=== PATIENT | male | born 1940 | race Caucasian/White ===

== ENCOUNTER 2016-10-23 03:36 | Inpatient (IN) | payer OTHER ==
[~2016-10-23] VITALS: Ht 167.6 cm; Wt 72.6 kg
[2016-10-23] MEDS ORDERED: LIPITOR10 M1 PO (07:19)
[2016-10-23] MEDS ORDERED: DIOVAN HCT 3201 EACH PO (07:20)
[2016-10-23] MEDS ORDERED: ASPIRIN81 M4 PO (07:21)
--- NOTE | 2016-10-23 12:33 | History & Physical ---
General Information and HPI MD Statement: I have seen and personally examined ENRIQUE JONES and documented this H&P. The patient is a 76 year old M who presented with a patient stated chief complaint of [Afib]. Source of Information: patient History of Present Illness: 76-year-old gentleman with out significant past medical history was admitted for new-onset A. fib. Patient was a scheduled for an elective hip replacement therapy today. He had a preop evaluation by his PCP about 2 weeks ago during which his EKG was within normal sinus rate and rhythm. Patient recalls intermittent episodes of feeling anxious accompanied by feelings that his heart was racing. These episodes tend to be very separate from each other and has not caused any limitation for his physical activity. Patient does not remember any trigger that in associated with this episodes of tachycardia. The latest episodes was about 3 nights ago. According to patient this episodes is started gradually and resolved after about 2 hours spontaneously. Patient denies any chest pain, shortness of breath, cold or heat intolerance, unintentional weight loss or weight gain, lightheadedness dizziness and loss of consciousness. Allergies/Medications Allergies: Coded Allergies: methyldopa (From ALDOMET) (Severe, ALTERED LIVER ENZYMES 10/22/16) Home Med list Aspirin (Aspirin*) 81 MG TAB.CHEW 81 MG PO DAILY HEART HEALTH (Reported) Atorvastatin Calcium (Lipitor) 10 MG TABLET 10 MG PO DAILY HIGH CHOLESTROL ( Reported) Valsartan/Hydrochlorothiazide (Diovan Hct 320-25 MG Tablet) 320 MG-25 MG TABLET HIGH BLOOD PRESSURE (Reported) Past History Travel History Traveled to [place] past 21 day No Medical History Neurological: NONE Cardiovascular: hypertension, hyperlipidemia Respiratory: NONE Isolation History: Standard Surgical History Surgical History: non-contributory Past Family/Social History Family History Relations & Conditions if any SISTER (heart dysrhythmia). Functional Ability ADLs Independent: dressing, eating, toileting, bathing. Ambulation: independent IADLs Independent: shopping, housework, finances, food prep, telephone, transportation , medication admin. Review of Systems Review of Systems Constitutional: Denies: no symptoms. Cardiovascular: Reports: palpitations. Denies: chest pain, edema, orthopena, peripheral edema, syncope. Respiratory: Denies: cough, hemoptysis, orthopnea, short of breath, sputum production, stridor, wheezing. GI: Denies: abdominal pain, bloating, constipation, diarrhea, distention, bowel incontinence, melena, nausea, bloody stool, changes in stool, vomiting, steatorrhea. Genitourinary: Denies: discharge, dysuria, frequency, hematuria, hesitation, nocturia, pain, urgency. Musculoskeletal: Denies: back pain, gout, joint pain, joint swelling, muscle pain, muscle stiffness, neck pain. Skin: Denies: cysts, change in skin color, change in hair/nails, dryness, erythema, jaundice, lesions, lymphangitis, lumps, moles, rash. Neurological/Psychological: Denies: anxiety, ataxia, cognitive dysfunction, confusion, depressed, dementia, emotional problems, headache, numbness, paresthesia, pre-existing deficit, petit mal seizures, tingling, tremors, tonic-clonic seizures, unable to move lower ext , unable to move upper ext, weakness, other. All Other Systems: Reviewed and Negative Exam & Diagnostic Data Last 24 Hrs of Vital Signs/I&O Intake & Output 10/23 1600 10/23 0800 10/23 0000 Intake Total Output Total Balance Patient 160 lb Weight Physical Exam General Appearance Alert, Oriented X3, Cooperative, No Acute Distress Skin No Rashes, No Breakdown, No Significant Lesion HEENT Atraumatic, PERRLA, EOMI, Mucous Membr. moist/pink Neck Supple, No JVD, No thryomegaly Lymphatic Axillary nl, Cervical nl Cardiovascular No Murmurs, irregularly irregular; tachycardic Lungs Clear to Auscultation Abdomen Soft Neurological Normal Speech Extremities No Clubbing, No Cyanosis, No Edema Vascular Normal Pulses, Pulses Symmetrical Breasts Breast appear nl, No breast discharge, No breast masses Last 24 Hrs of Labs/Jayesh: Labs were ordered Diagnostic Data EKG Results Atrial fibrillation with rapid ventricular rate Assessment/Plan Assessment: 76-year-old gentleman insignificant past couple history was admitted for paroxysmal atrial fibrillation with unknown duration. Plan: #1 new onset A. fib with unknown duration. CHADS-VASC2 score 2>>4% per year risk of Thromboembolic events * With the patient to telemetry unit * Check troponins 2 sets at 1 and 4 PM * CBC and BEP and magnesium * Check TSH and free T4 * chest x-ray * Echocardiography * Started patient on IV heparin for generalized anticoagulation; with plan to convert to NOVEL A/C medication as soon as tomorrow * The patient on metoprolol 12.5 mg by mouth twice a day for heartrate control targets heart rate below 110; remained tachycardic start Cardizem drip #2 HTN * continue Losartan 100 mg po daily * continue HCTZ 25 mg po daily As Ranked By This Provider Problem List: 1. Atrial fibrillation 2. Hypertension Core Measures/Miscellaneous Acute Coronary Syndrome ACS Diagnosis: No Cerebrovascular Accident CVA/TIA Diagnosis: No Congestive Heart Failure CHF Diagnosis: No Venous Thromboembolism VTE Risk Factors: Age > 40 VTE Prophylaxis Ordered Inpt: Pharm- Heparin No Mech VTE prophylaxis d/t: No contraindications No VTE Pharm Prophylaxis d/t: No contraindications VTE Diagnosis: No VTE Type: NONE VTE Confirmed by (Test): NONE Severe Sepsis Severe Sepsis Present: No Septic Shock Septic Shock Present: No Miscellaneous Documentation Attending Case Discussed With: Nikos Solis MD Primary Care Physician: HUMBERTO MARTINEZ MD 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
--- NOTE | 2016-10-23 12:46 | Cons- Cardiology ---
General Information and HPI Consulting Request Date of Consult: 10/23/16 Requested By: JULY UMAÑA MD Reason for Consult: Atrial fibrillation of unclear duration Source of Information: patient, family History of Present Illness: The patient is a 76-year-old male who is here today for elective hip replacement for osteoarthritis. The patient has no known history of cardiac disease. He was seen for preoperative clearance by his primary care physician Dr. Santo in [place]. His ECG several weeks ago showed normal sinus rhythm. 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 His surgery was canceled. I was asked see the patient at that time for further evaluation. Patient is awake and alert and denies any significant symptoms although he felt that his heart might be racing a bit at that time he was brought to the operating room. He denies any prior history of any symptoms. He has a history of hypertension but no known history of underlying cardiac disease. The patient is admitted to the hospital for telemetry monitoring, rate control, and further evaluation prior to the institution of oral anticoagulation. Allergies/Medications Allergies: Coded Allergies: methyldopa (From ALDOMET) (Severe, ALTERED LIVER ENZYMES 10/22/16) Home Med List: Aspirin (Aspirin*) 81 MG TAB.CHEW 81 MG PO DAILY HEART HEALTH (Reported) Atorvastatin Calcium (Lipitor) 10 MG TABLET 10 MG PO DAILY HIGH CHOLESTROL ( Reported) Valsartan/Hydrochlorothiazide (Diovan Hct 320-25 MG Tablet) 320 MG-25 MG TABLET HIGH BLOOD PRESSURE (Reported) Current Medications: Current Medications Sig/Jamilah Start time Last Medication Dose Route Stop Time Status Admin Acetaminophen 975 MG ONCE 10/23 0000 NR PO 10/23 235 Cefazolin Sodium 2,000 MG ONCE 10/23 0000 NR IV 10/23 235 Heparin Sodium 25,000 UNIT Q24H 10/23 1245 UNVr (Porcine) IV Sodium Chloride 500 ML Metoprolol Tartrate 12.5 MG BID 10/23 1239 UNVr PO Oxycodone HCl 10 MG .STK-MED ONE 10/23 0759 DC PO 10/23 0800 Oxycodone HCl 10 MG ONCE 10/23 0000 NR PO 10/23 2359 Past History Medical History Blood Transfusion Hx: No Neurological: NONE EENT: NONE Cardiovascular: hypertension Respiratory: NONE Gastrointestinal: NONE Hepatic: NONE Renal: NONE Musculoskeletal: NONE Psychiatric: NONE Endocrine: NONE Blood Disorders: NONE Cancer(s): NONE INFORMATION SCIENTIST/Reproductive: NONE Surgical History Surgical History: 1 Psychosocial History Where Do You Live? Home Services at Home: None Smoking Status: Never Smoked Exam & Diagnostic Data Vital Signs and I&O Intake & Output 10/23 1600 10/23 0800 10/23 0000 10/22 1600 10/22 0800 10/22 0000 Intake Total Output Total Balance Patient 160 lb Weight Physical Exam: General: Well-developed, well-nourished, elderly white male. No acute distress. Alert and oriented 3. HEENT: Normal Neck: JVP normal, carotid up strokes 2+ bilaterally with no bruits. No thyromegaly or adenopathy Chest: Clear bilaterally to auscultation and percussion Heart: Irregular S1, S2. 1/6 systolic murmur left sternal border abdomen: Normal Extremities: Normal Peripheral vascular: Normal Diagnostic Data EKG Results Atrial fibrillation, nonspecific ST-T changes, suboptimal rate control Assessment/Plan Assessment/Plan Assessment: 1. Atrial fibrillation of unknown duration 2. Hypertension 3. Osteoarthritis Recommendations: -Admit the patient to [address] [place] [address] telemetry -IV heparin following protocol -Continue regular medications -Add metoprolol 12.5 mg twice a day -Full laboratory evaluation to include TSH, CVC, electrolytes, magnesium, etc. -Check troponin -If stable in 24 hours, and rate controlled, transition to nominal oral anticoagulant such as Ahlquist -Possible discharge in 24 hours if stable -The patient lives in [place]. I discussed the long-term follow-up possibilities with the patient. If possible, they would prefer to have cardiology follow-up in [place]. I discussed the case with Dr. Jorge López and he has agreed to follow-up the patient as an outpatient in the future. Consult Acknowledgment - Thank you for your consult request.
--- NOTE | 2016-10-23 15:04 | Discharge Summary ---
Visit Information Visit Dates Admission Date: 10/23/16 Hospital Course Course Attending Physician: JULY UMAÑA MD Primary Care Physician: HUMBERTO MARTINEZ MD Hospital Course: 86-year-old gentleman without significant past medical history was admitted for new onset A. fib. Allergies: Coded Allergies: methyldopa (From ALDOMET) (Severe, ALTERED LIVER ENZYMES 10/22/16)
[2016-10-23 15:25] VITALS: BP 114/80
[2016-10-23 16:01] LABS: ABSOLUTE BASOPHIL COUNT 0 /CUMM (0.0-0.2); ABSOLUTE EOSINOPHIL COUNT 0.2 /CUMM (0.0-0.7); ABSOLUTE GRANULOCYTE CT 3.3 /CUMM (1.4-6.5); ABSOLUTE LYMPH COUNT 1.3 /CUMM (1.2-3.4); ABSOLUTE MONOCYTE COUNT 0.6 /CUMM (0.10-0.60); BASOPHIL % 0.2 % (0.0-2.0); EOSINOPHIL % 3.6 % (0-5); GRANULOCYTE % 60.9 % (42.2-75.2); HEMATOCRIT 48.2 % (42-52); MEAN CORPUSCULAR HGB CONC 33.5 G/DL (33.0-37.0); MEAN CORPUSCULAR VOLUME 95.7 FL (80.0-94.0); MEAN PLATELET VOLUME 9.4 FL (7.4-10.4); PLATELET COUNT 195 /CUMM (130-400); RBC DISTRIBUTION WIDTH 12.5 % (11.5-14.5); RED BLOOD CELL CT 5.04 /CUMM (4.70-6.10); WHITE BLOOD CELL COUNT 5.5 /CUMM (4.8-10.8)
[2016-10-23 16:59] VITALS: BP 126/82
--- NOTE | 2016-10-23 18:50 | RADIOLOGY REPORT ---
EXAMINATION: XR PORTABLE CHEST CLINICAL INFORMATION: New onset of atrial fibrillation. Tachycardia. COMPARISON: None. TECHNIQUE: Portable view of the chest was obtained. 5:53 PM FINDINGS: No significant abnormality is noted involving the heart, lungs, mediastinum, bony thorax or soft tissues. IMPRESSION: No acute abnormality of the chest.
[2016-10-23 21:22] LABS: PTT 111 SEC (25-37)
[2016-10-23 23:04] VITALS: BP 110/70
[2016-10-24 05:55] LABS: ABSOLUTE BASOPHIL COUNT 0 /CUMM (0.0-0.2); ABSOLUTE EOSINOPHIL COUNT 0.2 /CUMM (0.0-0.7); ABSOLUTE LYMPH COUNT 1.5 /CUMM (1.2-3.4); ABSOLUTE MONOCYTE COUNT 0.4 /CUMM (0.10-0.60); BASOPHIL % 0.4 % (0.0-2.0); GRANULOCYTE % 58.3 % (42.2-75.2); MEAN CORPUSCULAR HGB 32.6 PG (27.0-31.0); MEAN CORPUSCULAR HGB CONC 34.2 G/DL (33.0-37.0); MEAN CORPUSCULAR VOLUME 95.3 FL (80.0-94.0); MEAN PLATELET VOLUME 8.8 FL (7.4-10.4); PLATELET COUNT 177 /CUMM (130-400); RBC DISTRIBUTION WIDTH 12.6 % (11.5-14.5); WHITE BLOOD CELL COUNT 5.1 /CUMM (4.8-10.8)
[2016-10-24 06:01] LABS: HEMATOCRIT 41.9 % (42-52)
[2016-10-24 06:14] LABS: PTT 118 SEC (25-37)
--- NOTE | 2016-10-24 08:10 | PN- Housestaff ---
See Addendum Subjective Follow-up For: new onset Afib Complaints: hip pain Tele-Events Since Last Visit: No Tele events. Afib Rate 90s Subjective: patient was visited and examined this morning. No complains except for hip pain. Denies chest pain, palpitation, lightheadedness. VS stable. Review of Systems Constitutional: Denies: chills, diaphoresis, fever, malaise, weakness, unexplained weight loss. EENTM: Denies: blurred vision, double vision, visual changes, eye pain, eye drainage, eye tearing, icterus, ear discharge, ear pain, ear redness, hearing changes, nasal congestion, epistaxis, nasal pain, throat pain, throat swelling, mouth pain, tooth pain. Cardiovascular: Denies: chest pain, edema, orthopena, palpitations, peripheral edema, syncope. Respiratory: Denies: cough, hemoptysis, orthopnea, short of breath, sputum production, stridor, wheezing. Neurological/Psychological: Denies: anxiety, ataxia, cognitive dysfunction, confusion, depressed, dementia, emotional problems, headache, numbness, paresthesia, pre-existing deficit, petit mal seizures, tingling, tremors, tonic-clonic seizures, unable to move lower ext , unable to move upper ext, weakness, other. Objective Last 24 Hrs of Vital Signs/I&O Vital Signs Date Time Temp Pulse Resp B/P Pulse O2 O2 Flow FiO2 Ox Delivery Rate 10/23 2304 98.4 80 18 110/70 97 Room Air 10/23 1711 73 126/82 10/23 1659 97.7 73 17 126/82 95 Room Air 10/23 1525 97.9 98 18 114/80 95 Room Air Intake & Output 10/24 1600 10/24 0800 10/24 0000 Intake Total 420 680 Output Total 250 Balance 420 430 Intake, IV 180 200 Intake, Oral 240 480 Output, Urine 250 Physical Exam General Appearance: Alert, Oriented X3, Cooperative, No Acute Distress Skin: No Rashes, No Breakdown, No Significant Lesion Cardiovascular: Normal S1, Normal S2, No Murmurs, irregularly irregular Lungs: Clear to Auscultation, Normal Air Movement Abdomen: Soft, No Tenderness, No Hepatospenomegaly Neurological: Normal Gait, Normal Speech, Strength at 5/5 X4 Ext, Normal Tone Current Medications: Current Medications Sig/Jamilah Start time Last Medication Dose Route Stop Time Status Admin Acetaminophen 650 MG Q6 PRN 10/23 1800 AC PO Acetaminophen 975 MG ONCE 10/23 0000 DC PO 10/23 2359 Aspirin 81 MG DAILY 10/23 1446 AC 10/23 PO 1750 Atorvastatin Calcium 10 MG DAILY 10/23 1446 AC 10/23 PO 1750 Cefazolin Sodium 2,000 MG ONCE 10/23 0000 DC IV 10/23 2359 Diclofenac Sodium 1 RADHA 4 TIMES/DAY 10/23 1800 AC 10/23 TOP 2017 Heparin Sodium 25,000 UNIT Q24H 10/23 1245 AC 10/23 (Porcine) IV 1451 Sodium Chloride 500 ML Hydrochlorothiazide 25 MG DAILY 10/24 1000 AC PO Losartan Potassium 100 MG DAILY 10/24 1000 AC PO Metoprolol Tartrate 12.5 MG BID 10/23 1239 AC 10/23 PO 1711 Oxycodone HCl 5 MG Q6 10/23 1800 DC PO Oxycodone HCl 5 MG Q6 PRN 10/23 1530 AC 10/23 PO 2018 Oxycodone HCl 10 MG ONCE 10/23 0000 DC PO 10/23 2359 Oxycodone/ 2 TAB Q6P PRN 10/23 1500 AC 10/24 Acetaminophen PO 0438 Last 24 Hrs of Lab/Jayesh Results Last 24 Hrs of Labs/Mics: Laboratory Tests 10/24/16 0440: APTT 118 *H, CBC w Diff NO MAN DIFF REQ, RBC 4.40 L, MCV 95.3 H, MCH 32.6 H, RDW 12.6, MPV 8.8, Gran % 58.3, Lymphocytes % 28.9, Monocytes % 8.4, Eosinophils % 4.0, Basophils % 0.4, Absolute Granulocytes 3.0, Absolute Lymphocytes 1.5, Absolute Monocytes 0.4, Absolute Eosinophils 0.2, Absolute Basophils 0, PUBS MCHC 34.2 10/23/16 2010: APTT 111 *H 10/23/16 1635: Troponin I < 0.01 10/23/16 1430: Troponin I Cancelled 10/23/16 1430: Gxf-D-Coruyphsbct Pept Cancelled 10/23/16 1430: Magnesium Cancelled 10/23/16 1430: Magnesium 2.0, Troponin I < 0.01, Hso-Q-Zctnumctquo Pept 629 H, TSH 2.920, Free T4 1.57, CBC w Diff NO MAN DIFF REQ, RBC 5.04, MCV 95.7 H, MCH 32.0 H, RDW 12.5, MPV 9.4, Gran % 60.9, Lymphocytes % 24.6, Monocytes % 10.7 H, Eosinophils % 3.6, Basophils % 0.2, Absolute Granulocytes 3.3, Absolute Lymphocytes 1.3, Absolute Monocytes 0.6, Absolute Eosinophils 0.2, Absolute Basophils 0, PUBS MCHC 33.5 Assessment/Plan Assessment: 76-year-old gentleman with outside significant past medical history, was admitted for new onset atrial fibrillation for unknown duration. Pertinent data Echo results: Thyroid function tests: Assessment and plan #1 atrial fibrillation for unknown duration; CHADVASC2 score 2, associated with 4% chance of thromboembolic event each year * Rate control with metoprolol 12.5 mg twice a day * Anticoagulation with heparin drip plan to switch to novel oral anticoagulation * Continue Lipitor * Continue aspirin * Follow echo results Problem List: 1. Atrial fibrillation 2. Hypertension Pain Ratin Pain Location: hip Pain Goal: Pain 4 or less Pain Plan: morphine Tomorrow's Labs & Rationales: none Discharge Plan Discharge Disposition: home Stable for Discharge? Yes Anticipated Discharge (Day): today
[2016-10-24 08:48] VITALS: BP 118/70
[2016-10-24] MEDS ORDERED: METOPROLOL TART25 M1 PO (09:05)
[2016-10-24] MEDS ORDERED: ELIQUIS5 M1 PO (09:05)
--- NOTE | 2016-10-24 09:08 | Patient Discharge Instructions ---
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 within 7 days post hospital discharge #2 please follow-up with her primary care physician #3 be watchful for any abnormal bleeding including but not limited to GI bleeding Diet Continue normal diet: No Recommended Diet: Heart Healthy Activity Full Activity/No Limits: Yes Activity Self Limited: Yes Additional ACTIVITY Info: Follow-up percussion increased risk of bleeding Acute Coronary Syndrome Inclusion Criteria At DC or during hospital stay patient has or had the following: ACS DIAGNOSIS No Discharge Core Measures Meds if any: Prescribed or Continued at Discharge Meds if any: NOT Prescribed or Continued at Discharge Congestive Heart Failure Inclusion Criteria At DC or during hospital stay patient has or had the following: CHF DIAGNOSIS No Discharge Core Measures Meds if any: Prescribed or Continued at Discharge Meds if any: NOT Prescribed or Continued at Discharge Cerebrovascular accident Inclusion Criteria At DC or during hospital stay patient has or had the following: CVA/TIA Diagnosis No Discharge Core Measures Meds if any: Prescribed or Continued at Discharge Meds if any: NOT Prescribed or Continued at Discharge Venous thromboembolism Inclusion Criteria VTE Diagnosis No VTE Type NONE VTE Confirmed by (Test) NONE Discharge Core Measures - Per Current guidelines, there needs to be overlap - treatment for the first 5 days of Warfarin therapy. - If discharged on Warfarin prior to 5 days of - overlap therapy, the patient will need to be - assessed for post discharge needs including - *Post discharge parental anticoagulation - *Warfarin and/or parental anticoagulation education - *Follow up date to check INR post discharge At least 5 days overlap therapy as Inpatient No Meds if any: Prescribed or Continued at Discharge Note: Overlap Therapy is Warfarin and Anticoagulant Meds if any: NOT Prescribed or Continued at Discharge
--- NOTE | 2016-10-24 09:08 | Discharge Summary ---
See Addendum Visit Information Visit Dates Admission Date: 10/23/16 Discharge Date: 10/24/16 Hospital Course Course Attending Physician: Markus ROGERS MD Primary Care Physician: HUMBERTO MARTINEZ MD Hospital Course: The patient is a 76-year-old male who is here today for elective hip replacement for osteoarthritis. The patient has no known history of cardiac disease. He was seen for preoperative clearance by his primary care physician Dr. Santo [place]. His ECG several weeks ago showed normal sinus rhythm. In the OR, pateint was found in AFib w/ RVR and patient was admitted to Medical floor. He was started on Metoprolol for hear rate control and and eliquis, considering his RICARDO-Vasc2 score. After initial workup, patient was discharged home on the aforementioned medications with recommendation to follow up with Dr. López. Allergies: Coded Allergies: methyldopa (From ALDOMET) (Severe, ALTERED LIVER ENZYMES 10/22/16) Disposition Summary Disposition Principal Diagnosis: Atrial Fibrillation Additional Diagnosis: Nonne Discharge Disposition: home or self care Discharge Instructions General Discharge Information Code Status: Full Code (full) Patient's Diet: Heart Healthy Patient's Activity: as tolerated Follow-Up Instructions/Appts: W/ Dr. López as sson as possible Medications at Discharge Discharge Medications: Continue taking these medications: Atorvastatin Calcium (Lipitor) 10 MG TABLET 10 Milligram ORAL DAILY Comments: Last Taken: 10/24/16 Time: 11 AM Valsartan/Hydrochlorothiazide (Diovan Hct 320-25 MG Tablet) 320 MG-25 MG TABLET ORAL DAILY Comments: NOT GIVEN IN THE HOSPITAL Aspirin (Aspirin*) 81 MG TAB.CHEW 81 Milligram ORAL DAILY Comments: Last Taken: 10/24/16 Time: 11 AM Start taking the following new medications: Apixaban (Eliquis) 5 MG TABLET 5 Milligram ORAL TWICE DAILY Qty = 60 No Refills Comments: Last Taken: 10/24 Time: 12NOON Metoprolol Tartrate (Metoprolol Tartrate) 25 MG TABLET 1 Half Tablet ORAL TWICE DAILY Qty = 30 No Refills Comments: Last Taken: 10/24/16 Time: 11 AM Copies To: Francisco GARDUNO MD Attending Review Statement Documenting Attending: Markus ROGERS MD Other Findings: PATIENT: ENRIQUE JONES PRESENT AGE: 76 PATIENT ACCOUNT NO: [id number] : 40 LOCATION: [facility] ORDERING PHYSICIAN: HELADIO PAZ MD SERVICE DATE: 10/23/16- EXAM TYPE: CARD - ECHOCARDIOGRAM ENRIQUE JONES Age: 76 : 1940 Gender: M Exam Date: 10/23/2016 16:40 Exam Location: 1 North Ht (in): 66 Wt (lb): 160 BSA: 1.85 BP: 114 / 80 Ordering Physician: HELADIO PAZ MD Referring Physician: Neto Rogers MD Technologist: Brittany Fitzpatrick [facility] Room Number: [id number] Indications: Rhythm: Atrial fibrillation Technical Quality: Fair, Technically difficult study FINDINGS Left Ventricle Normal size left ventricle. No obvious regional wall motion abnormalities. Normal left ventricular ejection fraction estimated at 55-60%. Right Ventricle Normal right ventricular size and function. Right Atrium Normal right atrial size. Left Atrium Mild left atrial dilatation. Mitral Valve Moderate thickening/calcification of the anterior mitral valve leaflet. Mild mitral regurgitation. Aortic Valve Trileaflet aortic valve. Diffuse thickening (sclerosis) of the aortic valve cusps without reduced excursion. No aortic stenosis. Trace to mild aortic regurgitation. Tricuspid Valve Tricuspid valve not well visualized, grossly normal. Mild tricuspid regurgitation. Pulmonic Valve Pulmonic valve not well visualized, grossly normal. Pericardium Normal pericardium. No pericardial effusion. Great Vessels Mildly dilated proximal ascending aorta (tube). CONCLUSIONS 1. This was a technically difficult study due to the patient's body habitus. 2. Moderate aortic sclerosis is present. This is most prominent in the right coronary leaflet. There is no valvular stenosis. Minimal to mild aortic insufficiency is present. 3. Moderate thickening and calcification of the mitral leaflets is present with mild mitral insufficiency and mild left atrial enlargement. 4. Minimal dilatation of the ascending aorta is present. 5. The left ventricular chamber size is normal. The ejection fraction is normal. 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 6. The right heart structures are grossly normal. Mild tricuspid insufficiency is present with no evidence of significant pulmonary hypertension. Neto Rogers M.D. (Electronically Signed) Final Date: 24 October 2016 10:11 MEASUREMENTS (Male / Female) Normal Values 2D ECHO LV Diastolic Diameter PLAX 4.5 cm 4.2 - 5.9 / 3.9 - 5.3 cm LV Systolic Diameter PLAX 2.6 cm 2.1 - 4.0 cm LV Fractional Shortening PLAX 42.2 % 25 - 46 % LV Ejection Fraction 2D Teich 73.4 % IVS Diastolic Thickness 1.1 cm LVPW Diastolic Thickness 1.1 cm LV Relative Wall Thickness 0.5 RV Internal Dim ED PLAX 2.4 cm 1.9 - 3.8 cm LVOT Diameter 2.1 cm Aortic Root Diameter 3.2 cm LA Systolic Diameter LX 3.1 cm 3.0 - 4.0 / 2.7 - 3.8 cm LA Volume 35.0 cm 18 - 58 / 22 - 52 cm Ascending Aorta Diameter 4.0 cm DOPPLER AV Peak Velocity 139.0 cm/s AV Peak Gradient 7.7 mmHg AV Mean Velocity 104.0 cm/s AV Mean Gradient 5.0 mmHg AV Velocity Time Integral 23.1 cm LVOT Peak Velocity 108.0 cm/s LVOT Peak Gradient 4.7 mmHg LVOT Mean Velocity 77.4 cm/s LVOT Mean Gradient 3.0 mmHg LVOT Velocity Time Integral 18.8 cm LVOT Stroke Volume 65.1 cm AV Area Cont Eq vti 2.8 cm AV Area Cont Eq pk 2.7 cm MV Peak Velocity 124.0 cm/s MV Peak Gradient 6.2 mmHg MV Mean Velocity 60.5 cm/s MV Mean Gradient 2.0 mmHg Mitral E Point Velocity 115.0 cm/s MV PHT Velocity 128.0 cm/s MV Deceleration [place] 637.0 cm/s MV Pressure Half Time 60.3 ms MV Area PHT 3.6 cm MV Deceleration Time 173.0 ms TR Peak Velocity 232.0 cm/s TR Peak Gradient 21.5 mmHg Right Atrial Pressure 5.0 mmHg Pulmonary Artery Systolic Pressu 26.5 mmHg Right Ventricular Systolic Press 26.5 mmHg PV Peak Velocity 105.0 cm/s PV Peak Gradient 4.4 mmHg PV Mean Velocity 74.1 cm/s PV Mean Gradient 3.0 mmHg PV Velocity Time Integral 14.6 cm LV E' Lateral Velocity 15.4 cm/s Mitral E to LV E' Lateral Ratio 7.5 LV E' Septal Velocity 10.9 cm/s Mitral E to LV E' Septal Ratio 10.6 DICTATED BY: Markus ROGERS MD DATE/TIME DICTATED:10/24/161010 DRIVER/GUIDE:JUAN DATE/TIME TRANSCRIBED:10/24/161010 CONFIDENTIAL, DO NOT COPY WITHOUT APPROPRIATE AUTHORIZATION. <Electronically signed in Other Vendor System> SIGNED BY: Markus ROGERS MD 10/24/16 1012 PATIENT: ENRIQUE JONES PRESENT AGE: 76 PATIENT ACCOUNT NO: [id number] : 40 LOCATION: [facility] ORDERING PHYSICIAN: HELADIO PAZ MD SERVICE DATE: 10/23/16 EXAM TYPE: RAD - XRY-PORTABLE CHEST XRAY EXAMINATION: XR PORTABLE CHEST CLINICAL INFORMATION: New onset of atrial fibrillation. Tachycardia. COMPARISON: None. TECHNIQUE: Portable view of the chest was obtained. 5:53 PM FINDINGS: No significant abnormality is noted involving the heart, lungs, mediastinum, bony thorax or soft tissues. IMPRESSION: No acute abnormality of the chest. DICTATED BY: MARTIR VALDEZ MD DATE/TIME DICTATED:10/23/161845 DRIVER/GUIDE:JANSEN DATE/TIME TRANSCRIBED:10/23/161845 CONFIDENTIAL, DO NOT COPY WITHOUT APPROPRIATE AUTHORIZATION. <Electronically signed in Other Vendor System> SIGNED BY: MARTIR VALDEZ MD 10/23/16 263
--- NOTE | 2016-10-24 10:12 | ECHOCARDIOGRAM REPORT ---
ENRIQUE JONES Age: 76 : 1940 Gender: M Exam Date: 10/23/2016 16:40 Exam Location: 1 [address] Ht (in): 66 Wt (lb): 160 BSA: 1.85 BP: 114 / 80 Ordering Physician: HELADIO PAZ MD Referring Physician: Neto Solis MD Technologist: Brittany Fitzpatrick [facility] Room Number: [id number] Indications: Rhythm: Atrial fibrillation Technical Quality: Fair, Technically difficult study FINDINGS Left Ventricle Normal size left ventricle. No obvious regional wall motion abnormalities. Normal left ventricular ejection fraction estimated at 55-60%. Right Ventricle Normal right ventricular size and function. Right Atrium Normal right atrial size. Left Atrium Mild left atrial dilatation. Mitral Valve Moderate thickening/calcification of the anterior mitral valve leaflet. Mild mitral regurgitation. Aortic Valve Trileaflet aortic valve. Diffuse thickening (sclerosis) of the aortic valve cusps without reduced excursion. No aortic stenosis. Trace to mild aortic regurgitation. Tricuspid Valve Tricuspid valve not well visualized, grossly normal. Mild tricuspid regurgitation. Pulmonic Valve Pulmonic valve not well visualized, grossly normal. Pericardium Normal pericardium. No pericardial effusion. Great Vessels Mildly dilated proximal ascending aorta (tube). CONCLUSIONS 1. This was a technically difficult study due to the patient's body habitus. 2. Moderate aortic sclerosis is present. This is most prominent in the right coronary leaflet. There is no valvular stenosis. Minimal to mild aortic insufficiency is present. 3. Moderate thickening and calcification of the mitral leaflets is present with mild mitral insufficiency and mild left atrial enlargement. 4. Minimal dilatation of the ascending aorta is present. 5. The left ventricular chamber size is normal. The ejection fraction is normal. 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 6. The right heart structures are grossly normal. Mild tricuspid insufficiency is present with no evidence of significant pulmonary hypertension. Neto Solis M.D. (Electronically Signed) Final Date: 24 October 2016 10:11 MEASUREMENTS (Male / Female) Normal Values 2D ECHO LV Diastolic Diameter PLAX 4.5 cm 4.2 - 5.9 / 3.9 - 5.3 cm LV Systolic Diameter PLAX 2.6 cm 2.1 - 4.0 cm LV Fractional Shortening PLAX 42.2 % 25 - 46 % LV Ejection Fraction 2D Teich 73.4 % IVS Diastolic Thickness 1.1 cm LVPW Diastolic Thickness 1.1 cm LV Relative Wall Thickness 0.5 RV Internal Dim ED PLAX 2.4 cm 1.9 - 3.8 cm LVOT Diameter 2.1 cm Aortic Root Diameter 3.2 cm LA Systolic Diameter LX 3.1 cm 3.0 - 4.0 / 2.7 - 3.8 cm LA Volume 35.0 cm 18 - 58 / 22 - 52 cm Ascending Aorta Diameter 4.0 cm DOPPLER AV Peak Velocity 139.0 cm/s AV Peak Gradient 7.7 mmHg AV Mean Velocity 104.0 cm/s AV Mean Gradient 5.0 mmHg AV Velocity Time Integral 23.1 cm LVOT Peak Velocity 108.0 cm/s LVOT Peak Gradient 4.7 mmHg LVOT Mean Velocity 77.4 cm/s LVOT Mean Gradient 3.0 mmHg LVOT Velocity Time Integral 18.8 cm LVOT Stroke Volume 65.1 cm AV Area Cont Eq vti 2.8 cm AV Area Cont Eq pk 2.7 cm MV Peak Velocity 124.0 cm/s MV Peak Gradient 6.2 mmHg MV Mean Velocity 60.5 cm/s MV Mean Gradient 2.0 mmHg Mitral E Point Velocity 115.0 cm/s MV PHT Velocity 128.0 cm/s MV Deceleration [place] 637.0 cm/s MV Pressure Half Time 60.3 ms MV Area PHT 3.6 cm MV Deceleration Time 173.0 ms TR Peak Velocity 232.0 cm/s TR Peak Gradient 21.5 mmHg Right Atrial Pressure 5.0 mmHg Pulmonary Artery Systolic Pressu 26.5 mmHg Right Ventricular Systolic Press 26.5 mmHg PV Peak Velocity 105.0 cm/s PV Peak Gradient 4.4 mmHg PV Mean Velocity 74.1 cm/s PV Mean Gradient 3.0 mmHg PV Velocity Time Integral 14.6 cm LV E' Lateral Velocity 15.4 cm/s Mitral E to LV E' Lateral Ratio 7.5 LV E' Septal Velocity 10.9 cm/s Mitral E to LV E' Septal Ratio 10.6
[2016-10-24 11:05] VITALS: BP 124/76
--- NOTE | 2016-10-24 16:10 | PN- Cardiology ---
Subjective Subjective: The patient remains stable from a cardiac standpoint. He remains in atrial fibrillation with good rate control. Upset stomach this morning likely related to pain medications. I will bet as tolerated with no symptoms or issues. Objective Vital Signs and I&Os Vital Signs Date Time Temp Pulse Resp B/P Pulse O2 O2 Flow FiO2 Ox Delivery Rate 10/24 1105 98 124/76 10/24 1102 98 124/76 10/24 0848 98.0 82 16 118/70 95 10/23 2304 98.4 80 18 110/70 97 Room Air 10/23 1711 73 126/82 10/23 1659 97.7 73 17 126/82 95 Room Air Intake & Output 10/24 1600 10/24 0800 10/24 0000 10/23 1600 10/23 0800 10/23 0000 Intake Total 840 420 630 50 Output Total 250 Balance 840 420 380 50 Intake, IV 180 150 50 Intake, Oral 840 240 480 0 Output, Urine 250 Patient 160 lb Weight Physical Exam: General: Well-developed, well-nourished, elderly white male. No acute distress. Alert and oriented 3. HEENT: Normal Neck: JVP normal, carotid up strokes 2+ bilaterally with no bruits. No thyromegaly or adenopathy Chest: Clear bilaterally to auscultation and percussion Heart: Irregular S1, S2. 1/6 systolic murmur left sternal border abdomen: Normal Extremities: Normal Peripheral vascular: Normal Current Medications: Current Medications Sig/Jamilah Start time Last Medication Dose Route Stop Time Status Admin Acetaminophen 650 MG Q6 PRN 10/23 1800 AC PO Acetaminophen 975 MG ONCE 10/23 0000 DC PO 10/23 2359 Apixaban 5 MG BID 10/24 1000 AC 10/24 PO 1200 Aspirin 81 MG DAILY 10/23 1446 AC 10/24 PO 1100 Atorvastatin Calcium 10 MG DAILY 10/23 1446 AC 10/24 PO 1104 Cefazolin Sodium 2,000 MG ONCE 10/23 0000 DC IV 10/23 2359 Diclofenac Sodium 1 RADHA 4 TIMES/DAY 10/23 1800 AC 10/24 TOP 1349 Heparin Sodium 25,000 UNIT Q24H 10/23 1245 DC 10/23 (Porcine) IV 1451 Sodium Chloride 500 ML Hydrochlorothiazide 25 MG DAILY 10/24 1000 AC 10/24 PO 1104 Losartan Potassium 100 MG DAILY 10/24 1000 AC 10/24 PO 1102 Metoprolol Tartrate 12.5 MG BID 10/23 1239 AC 10/24 PO 1105 Oxycodone HCl 5 MG Q6 10/23 1800 DC PO Oxycodone HCl 5 MG Q6 PRN 10/23 1530 AC 10/23 PO 2018 Oxycodone HCl 10 MG ONCE 10/23 0000 DC PO 10/23 2359 Oxycodone/ 2 TAB Q6P PRN 10/23 1500 DC 10/24 Acetaminophen PO 0438 Patient Medication 1 ED .STK-MED ONE 10/24 1308 DC Teaching ED 10/24 1309 Results Last 48 Hrs of Labs/Mics: Laboratory Tests 10/24/16 1345: Anion Gap 13, Estimated GFR > 60, BUN/Creatinine Ratio 20.9 10/24/16 1330: APTT Cancelled 10/24/16 0440: APTT 118 *H, CBC w Diff NO MAN DIFF REQ, RBC 4.40 L, MCV 95.3 H, MCH 32.6 H, RDW 12.6, MPV 8.8, Gran % 58.3, Lymphocytes % 28.9, Monocytes % 8.4, Eosinophils % 4.0, Basophils % 0.4, Absolute Granulocytes 3.0, Absolute Lymphocytes 1.5, Absolute Monocytes 0.4, Absolute Eosinophils 0.2, Absolute Basophils 0, PUBS MCHC 34.2 10/23/162009: APTT 111 *H 10/23/16 1635: Troponin I < 0.01 10/23/16 1430: Troponin I Cancelled 10/23/16 1430: Smj-C-Ejwxwknfbyl Pept Cancelled 10/23/16 1430: Magnesium Cancelled 10/23/16 1430: Magnesium 2.0, Troponin I < 0.01, Omb-I-Huftkmodzuv Pept 629 H, TSH 2.920, Free T4 1.57, CBC w Diff NO MAN DIFF REQ, RBC 5.04, MCV 95.7 H, MCH 32.0 H, RDW 12.5, MPV 9.4, Gran % 60.9, Lymphocytes % 24.6, Monocytes % 10.7 H, Eosinophils % 3.6, Basophils % 0.2, Absolute Granulocytes 3.3, Absolute Lymphocytes 1.3, Absolute Monocytes 0.6, Absolute Eosinophils 0.2, Absolute Basophils 0, PUBS MCHC 33.5 Assessment/Plan Assessment/Plan Assessment: 1. Atrial fibrillation of unknown duration 2. Hypertension 3. Osteoarthritis Recommendations: -Patient can be discharged home today. -Continue current medications. Continue metoprolol 12.5 mg twice a day. Continue oral anticoagulation with Eliquis 5 twice a day -Patient will follow-up with Dr. López as an outpatient in [place] -Patient will call me if there are any other issues that should arise. Continue telemetry? No
== END 2016-10-24 16:40 | DRG 310 ==
LOC: 1NO 03:36 → SDA 03:36 → 1NO 11:57
PROVIDERS: Student in an Organized Health Care Education/Training Program; ADMIT Orthopaedic Surgery
DX: I48.0 Paroxysmal atrial fibrillation (principal); I10 Essential (primary) hypertension; M16.12 Unilateral primary osteoarthritis, left hip; E78.5 Hyperlipidemia, unspecified
CPT/HCPCS: 1NP; 36415; 82436; 93005; 93010; 93306; J0690; J1644; J3490

== ENCOUNTER 2016-11-27 03:41 | Inpatient (IN) | payer OTHER ==
[~2016-11-27] VITALS: Ht 172.7 cm; Wt 72.6 kg
[~2016-11-27 03:41] MED LIST: ASPIRIN81 M4 PO; DIOVAN HCT 3201 EACH PO; ELIQUIS5 M1 PO; LIPITOR10 M1 PO; METOPROLOL TART25 M1 PO
--- NOTE | 2016-11-27 10:17 | Admission Core Measures ---
Admission Meds I reviewed the following Meds: Current Medications Sig/Jamilah Start time Last Medication Dose Stop Time Status Admin Acetaminophen 975 MG ONCE 11/27 NR (Tylenol) 11/27 2358 Cefazolin Sodium 2,000 MG ONCE 11/27 NR (Kefzol-Ancef Inj) 11/27 2358 Oxycodone HCl 10 MG ONCE 11/27 AC (Roxicodone) 11/27 2358 Acute Coronary Syndrome Inclusion Criteria ACS Diagnosis No Inpatient Core Measures LDL Reminder: If No, please order W/I first 24hr of stay Congestive Heart Failure Inclusion Criteria CHF Diagnosis No Cerebrovascular accident Inclusion Criteria CVA/TIA Diagnosis No Inpatient Core Measures Bedside Swallow Eval Reminder: If BSE failed, place ST order Antithrombotic Reminder: Order Antithrombotic Medication by end of day 2 Antithrombotic Reminder: Document Reason Antithrombotic Not ordered by end of day 2 AFIB/Flutter Reminder: If Present, add to problem list AFIB/Flutter Reminder: Order Anticoag Medication for pts with AFIB/Flutter Atherosclerosis Reminder: If Present, add to problem list LDL Reminder: If No, please order W/I first 24hr of stay PT Order Reminder: If No, please order Venous thromboembolism Inpatient Core Measures VTE Risk Factors: Age > 40, Surgery VTE Prophylaxis Ordered Inpt Mech & Pharm No Mech VTE prophylaxis d/t No contraindications No VTE Pharm Prophylaxis d/t No contraindications Inclusion Criteria - Per Current guidelines, there needs to be overlap - treatment for the first 5 days of Warfarin therapy. - Parenteral Anticoagulation (IV or SC) needs to be - given along with Warfarin therapy. VTE Diagnosis No VTE Type NONE VTE Confirmed by (Test) NONE Problem List As ranked by this Provider includes Assessment & Plan 1. Status post total hip replacement, left HOME MEDS Home Med List Apixaban (Eliquis) 5 MG TABLET 5 MG PO BID Blood Thinner Atorvastatin Calcium (Lipitor) 10 MG TABLET 10 MG PO DAILY HIGH CHOLESTROL ( Reported) Metoprolol Tartrate 25 MG TABLET 1 HTAB PO BID Heart Rate control
[2016-11-27] MEDS ORDERED: MIRALAX17 G1 PO (10:30)
[2016-11-27] MEDS ORDERED: MS CONTIN15 M2 PO (10:30)
[2016-11-27] MEDS ORDERED: DILAUDID4 M1 PO (10:30)
[2016-11-27] MEDS ORDERED: ELIQUIS2.5 M1 PO (10:30)
[2016-11-27] MEDS ORDERED: COLACE100 M1 PO (10:30)
--- NOTE | 2016-11-27 10:33 | Patient Discharge Instructions ---
Discharge Instructions General Discharge Information You were seen/treated for: Left hip degenerative joint disease You had these procedures: Left total hip arthroplasty Watch for these problems: Significantly increased pain, difficulty ambulating Temperatures over 101.5 Increased redness or drainage from incision No bath, but you may shower: Yes Other wound care: Daily dry dressing change Special Instructions: See printed information sheet Diet Continue normal diet: Yes Activity Activity Self Limited: Yes Pounds, do NOT lift more than: 10 Other activity limits: Ambulate using rolling walker and as directed by physical therapy Acute Coronary Syndrome Inclusion Criteria At DC or during hospital stay patient has or had the following: ACS DIAGNOSIS No Discharge Core Measures Meds if any: Prescribed or Continued at Discharge Meds if any: NOT Prescribed or Continued at Discharge Congestive Heart Failure Inclusion Criteria At DC or during hospital stay patient has or had the following: CHF DIAGNOSIS No Discharge Core Measures Meds if any: Prescribed or Continued at Discharge Meds if any: NOT Prescribed or Continued at Discharge Cerebrovascular accident Inclusion Criteria At DC or during hospital stay patient has or had the following: CVA/TIA Diagnosis No Discharge Core Measures Meds if any: Prescribed or Continued at Discharge Meds if any: NOT Prescribed or Continued at Discharge Venous thromboembolism Inclusion Criteria VTE Diagnosis No VTE Type NONE VTE Confirmed by (Test) NONE Discharge Core Measures - Per Current guidelines, there needs to be overlap - treatment for the first 5 days of Warfarin therapy. - If discharged on Warfarin prior to 5 days of - overlap therapy, the patient will need to be - assessed for post discharge needs including - *Post discharge parental anticoagulation - *Warfarin and/or parental anticoagulation education - *Follow up date to check INR post discharge At least 5 days overlap therapy as Inpatient No Meds if any: Prescribed or Continued at Discharge Note: Overlap Therapy is Warfarin and Anticoagulant Meds if any: NOT Prescribed or Continued at Discharge
--- NOTE | 2016-11-27 10:35 | Surg Short-stay <48hrs Dis Sum ---
Visit Information Visit Dates Admission Date: 11/27/16 Discharge Date: 11/29/16 Surgical Short Stay DC Summary Admission Diagnosis: Left hip degenerative joint disease Final Diagnosis: Same Procedure(s): Left total hip arthroplasty Summary/Significant Findings: The patient was admitted on 11/27/2016. He is brought to the operating theater where he underwent a left total hip arthroplasty. Postoperatively the patient progressed as expected, his pain was under adequate control, and he worked well with physical therapy. The patient tolerated diet without nausea and voided postoperatively. He was discharged with an uncomplicated hospital course Condition at Discharge: Stable Discharge Disposition: home health services Discharge instructions provided to patient/family: Yes Post discharge follow-up plan: Call the office to be seen in 6 weeks or earlier if needed
--- NOTE | 2016-11-27 14:02 | RADIOLOGY REPORT ---
EXAMINATION: XR HIP, LEFT CLINICAL INFORMATION: Left hip replacement. COMPARISON: None TECHNIQUE: Two views of the left hip. FINDINGS: Left hip prosthesis is present and is in good position. There is no evidence of associated fracture. IMPRESSION: Left hip prosthesis no acute fracture.
--- NOTE | 2016-11-27 15:12 | PN- Orthopedic ---
Subjective Subjective: The patient was seen this evening postoperatively. He reports that his pain is under adequate control and he still has a heavy/numb feeling in both his lower legs. He has no other complaints at the current time and denies any chest pain or difficulty breathing. Objective Vital Signs and I&Os Vital signs: Blood pressure 120/70, pulse 80, temperature 96.9, O2 sat saturation 96% on room air I's and O's: 1850ml in of lactated Ringer's/he is due to void/EBL minimal Physical Exam: Gen.: Alert and in obvious distress Skin: Warm and dry Cardiac: S1 and S2 irregularly irregular Pulmonary: Bilateral breath sounds are equal with good exchange Extremities: Bilateral lower extremities are warm without calf tenderness or significant edema. Gross motor and sensory were intact. Left hip surgical dressing is clean, dry, and intact. Assessment/Plan Assessment/Plan Assessment: 76-year-old male status post left total hip arthroplasty. Postoperatively the patient is progressing as expected and his pain is under adequate control. Plan: Out of bed with physical therapy patient is weightbearing as tolerated Advance diet as tolerated Continue current pain regiment Resume home medications 2 doses of postoperative prophylactic antibiotics GI and DVT prophylaxis patient will begin Eliquis 2.5mg po bid, first dose in the morning Strict I's and O's and monitor for postoperative void Core Measures/Miscellaneous Venous Thromboembolism VTE Risk Factors: Age > 40, Surgery VTE Contraindications: No Contraindications VTE Prophylaxis Ordered Inpt: [facility] VTE Diagnosis: No VTE Type: NONE VTE Confirmed by (Test): NONE Beta Dimitris Is Beta Dimitris a Home Med? Yes If Yes, Was This Ordered Today? Yes Antibiotics Is Patient on Antibiotics? Yes If Yes: prophylaxis
--- NOTE | 2016-11-27 16:15 | Operative Report ---
Operative/Inv Procedure Report Surgery Date: 11/27/16 Name of Procedure: Left total hip replacement Pre-Operative Diagnosis: Primary left hip DJD Post-Operative Diagnosis: Same Estimated Blood Loss: 300 Surgeon/Apprentice Embalmer: CHASIDY GARCIA,JULY Renteria Anesthesia: block Operative/Procedure Note Note: Description of Procedure: The patient was taken to the operating room and positively identified. After induction of spinal anesthesia and administration of appropriate pre-operative antibiotics, the patient was positioned supine on the operating room table and all bony prominences were well padded. After performing a surgical timeout, the left lower extremity was prepped and draped in the usual sterile fashion. A direct anterior approach was made to the left hip. The incision was carried sharply through superficial soft tissues to the level of the fascia. Meticulous hemostasis was maintained with Bovie electocautery. The fascia over the tensor fascia tawny muscle was opened sharply and the interval between the TFL and the sartorius was entered bluntly taking care to stay lateral to the lateral femoral cutaneous nerve. Retractors were placed around the femoral neck and the pericapsular fat was identified. The ascending branches of the lateral femoral circumflex vessels were identified and carefully coagulated. The pericapsular fat and anterior capsule were then resected. A napkin ring osteotomy was performed and the femoral head was removed without difficulty. Attention was then turned to the acetabulum. After appropriate placement of retractors, the acetabulum was exposed. Soft tissue was cleaned from the acetabular margin and notch. Overhanging osteophytes were removed and the teardrop was exposed. The acetabulum was then sequentially reamed to accept a 58 mm [place] Tritanium hemispherical solid back shell. This was impacted into place in the appropriate position and fitted with a 36 mm Trident X3 zero degree polyethylene insert. Attention was then turned to the femur. After performing the appropriate ligament releases, the proximal femur was exposed. It was then sequentially broached to accept a size 4 [place] Anato stem. This was trialed for leg length and stability. The trial component was removed and the final component was impacted into place. The trunnion was carefully cleaned and fit with a 36 mm, + 5 Biolox delta ceramic femoral head. The hip was reduced and put through a full range of motion and found to be stable. The articular space was then irrigated with sterile saline. The periarticular soft tissues were infilitrated with Marcaine. The fascial layer was closed with interrupted #1 vicryl suture and the skin was re-approximated with interrupted 2 -0 vicryl. The skin was closed with a running 3-0 V-Lock suture. Steri-strips and a sterile dressing were applied. The patient was awakened and taken to the recovery room in satisfactory condition.
[2016-11-27 16:48] VITALS: BP 108/72
[2016-11-27 18:01] VITALS: BP 140/90
[2016-11-27 20:10] VITALS: BP 122/72
[2016-11-27 22:15] VITALS: BP 100/59
[2016-11-28 04:00] VITALS: BP 112/69
--- NOTE | 2016-11-28 07:04 | PN- Orthopedic ---
Subjective Subjective: The patient was seen this morning postoperatively day #1. He reports that his pain is under adequate control and is no other complaints at the current time. He is eager to go home early today. Objective Vital Signs and I&Os Vital Signs Date Time Temp Pulse Resp B/P Pulse O2 O2 Flow FiO2 Ox Delivery Rate 11/28 0400 98.6 88 18 112/69 97 Room Air 11/27 2215 97.7 89 20 100/59 97 11/27 2107 96 112/80 11/278 Room Air 11/27 2009 97.5 92 18 122/72 97 11/27 1801 96.4 91 18 140/90 95 / 1648 95.0 77 18 108/72 100 Room Air Intake & Output 11/28 0000 11/27 1600 11/27 0811/27 0000 11/26 1600 Intake Total 1080 825 Output Total 425 750 Balance 655 75 Intake, IV 600 225 Intake, Oral 480 600 Number 0 Bowel Movements Output, Urine 425 750 Patient 160 lb Weight Physical Exam: Gen.: Alert and obvious distress Skin: Warm and dry Extremities: Bilateral lower extremities are warm without calf tenderness or significant edema. Gross motor and sensory are intact. Left hip surgical dressing is clean, dry, and intact. There is minimal expected edema in the thigh compartments are soft. Assessment/Plan Assessment/Plan Assessment: 76 on male status post left total hip arthroplasty postoperative day #1. The patient is progressing as expected and his pain is under adequate control. Plan: Out of bed with physical therapy patient is weightbearing as tolerated Hep-Lock IV fluids Follow-up morning laboratory studies GI and DVT prophylaxis Patient is to begin Eliquis 2.5 mg by mouth twice a day first dose this morning Continue current pain regiment Possible discharge home later today if cleared by physical therapy Core Measures/Miscellaneous Venous Thromboembolism VTE Risk Factors: Age > 40, Surgery VTE Contraindications: No Contraindications VTE Prophylaxis Ordered Inpt: Mech & Pharm VTE Diagnosis: No VTE Type: NONE VTE Confirmed by (Test): NONE Beta Dimitris Is Beta Dimitris a Home Med? Yes If Yes, Was This Ordered Today? Yes Antibiotics Is Patient on Antibiotics? No
[2016-11-28 08:00] VITALS: BP 110/60
[2016-11-28 08:53] LABS: ABSOLUTE BASOPHIL COUNT 0 /CUMM (0.0-0.2); ABSOLUTE EOSINOPHIL COUNT 0 /CUMM (0.0-0.7); ABSOLUTE GRANULOCYTE CT 9.7 /CUMM (1.4-6.5); ABSOLUTE LYMPH COUNT 1.1 /CUMM (1.2-3.4); ABSOLUTE MONOCYTE COUNT 0.9 /CUMM (0.10-0.60); BASOPHIL % 0 % (0.0-2.0); EOSINOPHIL % 0.1 % (0-5); GRANULOCYTE % 82.3 % (42.2-75.2); MEAN CORPUSCULAR HGB 32.8 PG (27.0-31.0); MEAN CORPUSCULAR HGB CONC 34.2 G/DL (33.0-37.0); MEAN CORPUSCULAR VOLUME 95.7 FL (80.0-94.0); MEAN PLATELET VOLUME 8.9 FL (7.4-10.4); PLATELET COUNT 184 /CUMM (130-400); RBC DISTRIBUTION WIDTH 12.3 % (11.5-14.5); RED BLOOD CELL CT 3.76 /CUMM (4.70-6.10); WHITE BLOOD CELL COUNT 11.8 /CUMM (4.8-10.8)
[2016-11-28 11:55] VITALS: BP 104/63
[2016-11-28 16:12] VITALS: BP 100/63
[2016-11-28 23:33] VITALS: BP 96/92
[2016-11-29 07:55] VITALS: BP 114/58
[2016-11-29 08:02] VITALS: BP 112/56
--- NOTE | 2016-11-29 08:16 | PN- Orthopedic ---
Subjective Subjective: pod#2 s/p left suzi no major complaints denies cp, sob, no n+v with diet Objective Vital Signs and I&Os Vital Signs Date Time Temp Pulse Resp B/P Pulse O2 O2 Flow FiO2 Ox Delivery Rate 02/ 0802 112/56 02/ 0801 112/56 / 0755 97.9 70 18 114/58 95 / 2333 98.3 79 20 96/92 92 Room Air 11/28 2122 68 98/64 11/28 1612 98.0 86 20 100/63 94 / 1155 98.9 78 20 104/63 97 Room Air 11/28 0829 76 122/80 Intake & Output 11/29 1600 11/29 0811/29 0000 11/28 1600 11/28 0000 Intake Total 280 685 597 0622 825 Output Total 350 450 425 750 Balance 280 450 360 655 75 Intake, IV 40 10 600 225 Intake, Oral 240 800 800 480 600 Number 0 0 Bowel Movements Output, Urine 350 450 425 750 Patient 160 lb Weight Physical Exam: cv: rrr lungs: clear abd: +bs, soft ext: drsg changed, wound c/d/i no calf tendernes bilat distal cms intact Assessment/Plan Assessment/Plan ortho stable plan ok for home d/c tolday eliquis for dvt prophylsxis Core Measures/Miscellaneous Venous Thromboembolism VTE Risk Factors: Age > 40, Surgery VTE Contraindications: No Contraindications VTE Prophylaxis Ordered Inpt: Mech & Pharm VTE Diagnosis: No VTE Type: NONE VTE Confirmed by (Test): NONE Beta Dimitris Is Beta Dimitris a Home Med? Yes If Yes, Was This Ordered Today? Yes Antibiotics Is Patient on Antibiotics? No
== END 2016-11-29 10:10 | disposition home health service (06) | DRG 470 ==
LOC: ENRESERVDT → ENRESERVTM → CANRESERV → SDA 03:41 → ENPENDDIS 03:41 → SDA 07:00 → 2NB 15:41
PROVIDERS: Physician Assistant Surgical; ADMIT Orthopaedic Surgery
PROC: 0SRB04A Replacement of Left Hip Joint with Ceramic on Polyethylene Synthetic Substitute, Uncemented, Open Approach (ICD-10-PCS; principal; 2016-11-27)
DX: M16.12 Unilateral primary osteoarthritis, left hip (principal); I48.91 Unspecified atrial fibrillation; I35.0 Nonrheumatic aortic (valve) stenosis; I10 Essential (primary) hypertension; E78.5 Hyperlipidemia, unspecified; L71.9 Rosacea, unspecified; L28.0 Lichen simplex chronicus; Z79.01 Long term (current) use of anticoagulants
CPT/HCPCS: 36415; 73502-LT; 82436; 88304; 97110-GO; 97116-GO; 97161-GP; 97530-GO; J0131; J0690; J0735; J2250; J2405; J3010; J7042